=== PATIENT | female | born 1960 | race Caucasian/White ===

== ENCOUNTER 2022-02-15 17:41 | Inpatient (IN) | payer OTHER, MEDICARE ==
[~2022-02-15] VITALS: Ht 165.1 cm; Wt 74.8 kg
--- NOTE | 2022-02-15 18:22 | NUR ---
PT IS IN ROOM #2A. DR RAMIREZ EVALUATED THE PT.
[2022-02-15 18:36] LABS: MEAN CORPUSCULAR HEMOGLOBIN 27.2 uug (24.7-32.8); MEAN CORPUSCULAR VOLUME 84.7 fL (75.5-95.3); PLATELET COUNT (AUTO) 376 K/uL (179-408)
[2022-02-15 18:39] LABS: HEMATOCRIT 15.5 % (31.2-41.9)
[2022-02-15 18:41] LABS: BILIRUBIN,TOTAL 0.6 mg/dL (0.2-1.0); CREATININE 4.1 mg/dL (0.6-1.3); POTASSIUM 4.4 mmol/L (3.5-5.1); TOTAL PROTEIN, SERUM 7.1 g/dL (6.4-8.2)
[2022-02-15] MEDS ORDERED: MORPHINE SULFATE 2 MG/1 ML DISP.SYRIN IV ONE ×2 (20:00→21:45)
[2022-02-15] MEDS ORDERED: MORPHINE SULFATE 2 MG/1 ML DISP.SYRIN ONE (20:25)
[2022-02-15] MEDS ORDERED: AMOXICILLIN-CLAVUL 875-125MG TABLET PO ONE (21:45)
[2022-02-15] MEDS ORDERED: VANCOMYCIN 1G/D5W 200 ML PIGGYBACK IV ONE (21:45)
[2022-02-15] MEDS ORDERED: AZITHROMYCIN IV 500 MG in IV DEXTROSE 5% 250 ML IV ONE (21:45)
[2022-02-15] MEDS ORDERED: PIPERACILLIN SODIUM/TAZOBACTAM 3.375 G in IV DEXTROSE 5% 50 ML IV ONE (21:45)
--- NOTE | 2022-02-15 21:51 | NUR ---
PATIENT CURRENTLY RECIEVING BLOOD TRANSFUSION.
--- NOTE | 2022-02-15 21:58 | NUR ---
Dr Elise spoke with Dr Tinoco, [facility] senior receptionist who accepts patient.
[2022-02-15] MEDS ORDERED: EPOETIN ALFA 10,000 UNITS/ML VIAL SQ ONE (22:15)
--- NOTE | 2022-02-15 22:15 | NUR ---
PATIENT IS RECIEVING BLOOD AND SHOWING NO SIGNS OF REACTION AT THE MOMENT.
[2022-02-15] MEDS ORDERED: ALBUTEROL SULFATE 2.5 MG/ 0.5 ML NEBU NEB PRN (23:15)
[2022-02-15] MEDS ORDERED: ONDANSETRON 4 MG/2 ML VIAL IV PRN (23:15)
[2022-02-15] MEDS ORDERED: CEFTRIAXONE 1 G in IV DEXTROSE 5% 50 ML IV SCH (23:15)
[2022-02-15] MEDS ORDERED: ACETAMINOPHEN 325 MG TABLET PO PRN (23:15)
[2022-02-15 23:24] LABS: BAND % (MANUAL) 2 % (0-10); LYMPHOCYTES % (MANUAL) 25 % (20-40); MONOCYTES % (MANUAL) 4 % (2-10)
[2022-02-15 23:25] LABS: EOSINOPHILS % (MANUAL) 1 % (0-8); NEUTROPHILS % (MANUAL) 68 % (42-75)
[2022-02-16] VITALS (8 sets, daily range): BP systolic 118–195; BP diastolic 37–113
[2022-02-16] MEDS ORDERED: INSU100V7 SQ (00:02)
[2022-02-16] MEDS ORDERED: OXYC-128 PO (00:02)
[2022-02-16] MEDS ORDERED: AMLO10TA59 PO (00:02)
[2022-02-16] MEDS ORDERED: INSU100V11 SUBCUT (00:02)
[2022-02-16] MEDS ORDERED: MUPI22OI2 (00:02)
[2022-02-16] MEDS ORDERED: CLOP75TA15 PO (00:02)
[2022-02-16] MEDS ORDERED: DOCU100C36 PO (00:02)
[2022-02-16] MEDS ORDERED: SULF500T8 PO (00:02)
[2022-02-16] MEDS ORDERED: ONDA4SOL PO (00:02)
[2022-02-16] MEDS ORDERED: HYDR-894 PO (00:02)
[2022-02-16] MEDS ORDERED: PRED-170 PO (00:02)
[2022-02-16] MEDS ORDERED: HEPA500034 SUBCUT (00:02)
[2022-02-16] MEDS ORDERED: ASCO500T10 PO (00:02)
[2022-02-16] MEDS ORDERED: GABA-532 PO (00:02)
[2022-02-16] MEDS ORDERED: CALC-1310 PO (00:02)
[2022-02-16] MEDS ORDERED: FERR325T28 PO (00:02)
[2022-02-16] MEDS ORDERED: SEVE800T8 PO (00:02)
[2022-02-16] MEDS ORDERED: ERGO500040 PO (00:02)
[2022-02-16] MEDS ORDERED: HYDR200T4 PO (00:02)
[2022-02-16] MEDS ORDERED: MONT10TA33 PO (00:02)
[2022-02-16] MEDS ORDERED: FOLI1TAB94 PO (00:02)
[2022-02-16] MEDS ORDERED: ASPI81TA31 PO (00:02)
[2022-02-16] MEDS ORDERED: ACET-73 PO (00:02)
[2022-02-16] MEDS ORDERED: CARV12.52 PO (00:02)
[2022-02-16 00:26] LABS: IRON, SERUM 25 ug/dL (50-175)
--- NOTE | 2022-02-16 00:32 | NUR ---
PT. will be transferred to RM [id number].
--- NOTE | 2022-02-16 00:45 | NUR ---
Admitted patient in tele floor under the care of Dr Burnham, alert oriented. no sob no chest pain, on ongoing blood transfusion, patient also on ongoing dialysis. Patient alert oriented, no complain of pain, with 3 lumen perma cath at left chest. Patient noted with moist cough, kept hob elevated, monitor closely, cont to monitor.
--- NOTE | 2022-02-16 01:06 | NUR ---
Patient was trasnfered via gurney with blood transfusing. RN made aware of patient's arrival.
[2022-02-16] MEDS ORDERED: CEFTRIAXONE /D5W 50ML IVPB **ER PYXIS IV ONE (01:48)
[2022-02-16] MEDS ORDERED: PIPERACILLIN/TAZOBACTAM/D5W 50 ML IV ONE (01:48)
[2022-02-16] MEDS ORDERED: AZITHROMYCIN 500MG/ D5W 250ML IVPB **ER PYXIS ONLY IV ONE (01:48)
[2022-02-16] MEDS ORDERED: VANCOMYCIN IV 200 ML ONE (01:48)
--- NOTE | 2022-02-16 02:33 | NUR ---
Patient on ongoing dialysis, 1 unit PRBC is being transfused by electronic sales and service technician/RN tolerate well no adverse reaction noted, no sob no chest pain, cont to monitor.
--- NOTE | 2022-02-16 02:44 | NUR ---
Patient alert oriented, hob elevated with moist cough noted, but no sputum, on ongoing dialysis no adverse reaction noted from ongoing blood transfusion, cont to monitor.
--- NOTE | 2022-02-16 03:22 | NUR ---
Blood transfusion done with no adverse reaction noted, tolerating dialysis at this time, patient awake, alert oriented, BP was being monitored, cont to monitor.
--- NOTE | 2022-02-16 03:23 | NUR ---
IV antibiotic not given yet at this time, due to ongoing dialysis, cont to monitor.
--- NOTE | 2022-02-16 04:18 | NUR ---
SP dialysis took out 3,000 ml, tolerate well.
[2022-02-16] MEDS: MORPHINE SULFATE 2 MG/1 ML DISP.SYRIN IV PRN ×2 (04:52→11:45)
[2022-02-16] MEDS: GUAIFENESIN/DEXTROMETHORPHAN 5 ML UDC PO PRN ×2 (05:05→15:35)
[2022-02-16] MEDS ORDERED: diphenhydrAMINE 25 MG CAP PO PRN (06:00)
--- NOTE | 2022-02-16 06:00 | NUR ---
Notify Neil Prather patient has itching episode with order of benadryl 25 po q 6 prn for itching, and discontinue Rocepine, and Azithromycin IV.
--- NOTE | 2022-02-16 06:59 | NUR ---
Patient asleep no sob no chest pain, with moist cough noted, given cough meds as ordered with help, no further complain of pain at this time. Patient sinus on tele, cont to monitor.
[2022-02-16] MEDS ORDERED: PANTOPRAZOLE SODIUM 40 MG TABLET.DR PO SCH (07:00)
[2022-02-16 07:43] LABS: HEMATOCRIT 28.9 % (31.2-41.9); MEAN CORPUSCULAR HEMOGLOBIN 28.6 uug (24.7-32.8); MEAN CORPUSCULAR VOLUME 86.8 fL (75.5-95.3); PLATELET COUNT (AUTO) 407 K/uL (179-408)
[2022-02-16] MEDS ORDERED: EPOETIN ALFA-EPBX 10,000 UNIT/ML VIAL IV ONE (08:00)
[2022-02-16 08:20] LABS: BILIRUBIN,TOTAL 0.8 mg/dL (0.2-1.0); CREATININE 2.5 mg/dL (0.6-1.3); PHOSPHOROUS 3.5 mg/dL (2.5-4.9); TOTAL PROTEIN, SERUM 8.1 g/dL (6.4-8.2)
[2022-02-16] MEDS ORDERED: REMEDY ESSENTIAL ZINC PASTE 113 GM TOP SCH (09:00)
[2022-02-16] MEDS ORDERED: AMLODIPINE 10 MG TABLET PO SCH (09:30)
[2022-02-16] MEDS ORDERED: ACETAMINOPHEN ES 500 MG TABLET- SA PATIENTS-PAIN ONLY PO PRN (09:30)
[2022-02-16] MEDS ORDERED: CARVEDILOL 12.5 MG TABLET PO SCH (09:30)
[2022-02-16] MEDS ORDERED: hydrALAZINE HCL 25 MG TABLET PO PRN (09:30)
[2022-02-16] MEDS ORDERED: predniSONE 5 MG TABLET PO SCH (09:30)
[2022-02-16] MEDS ORDERED: PANTOPRAZOLE SODIUM 40 MG VIAL IV SCH (09:30)
[2022-02-16] MEDS ORDERED: ASPIRIN 81 MG TAB.CHEW PO SCH (10:00)
[2022-02-16] MEDS ORDERED: HYDROXYCHLOROQUINE SULFATE 200 MG TABLET PO SCH (10:00)
[2022-02-16] MEDS ORDERED: ALBUTEROL SULFATE 2.5 MG/3 ML NEBU NEB PRN (11:00)
[2022-02-16] MEDS ORDERED: SEVELAMER CARBONATE 800 MG TABLET PO SCH (11:30)
[2022-02-16] MEDS ORDERED: Medication Not On Formulary EA (Sevelamer Carbonate (Renvela) 1,600 MG) PO SCH (12:00)
[2022-02-16] MEDS ORDERED: INSULIN ASPART 1000 UNITS/10 ML VIAL(NOVOLOG) SQ SCH (12:00)
[2022-02-16] MEDS ORDERED: INSULIN LISPRO 300 UNIT/3 ML VIAL SQ SCH (13:00)
[2022-02-16] MEDS ORDERED: GABAPENTIN 100 MG CAPSULE PO SCH (13:00)
[2022-02-16 14:02] LABS: THYROID STIMULATING HORMONE 2.14 mIU/mL (0.358-3.740)
--- NOTE | 2022-02-16 15:37 | NUR ---
1300..BLOOD SUGAR 77..INSULIN 5 UNITS NOT GIVEN PT REFUSED TO EAT LUNCH..
--- NOTE | 2022-02-16 15:56 | NUR ---
1530..PT LEFT TO [facility] VIA EMS IN STABLE CONDITION..PT SON WAS AT BEDSIDE..
--- NOTE | 2022-02-16 15:57 | NUR ---
1445..REPORT CALLED TO SAMANTHA CASTILLO AT [facility]
[2022-02-16] MEDS ORDERED: DOCUSATE SODIUM 100 MG CAPSULE PO SCH ×2 (17:00→21:00)
[2022-02-16] MEDS ORDERED: ATORVASTATIN 40 MG TABLET PO SCH (21:00)
[2022-02-16] MEDS ORDERED: AZITHROMYCIN IV 500 MG in IV DEXTROSE 5% 250 ML IV SCH (21:00)
[2022-02-17] MEDS ORDERED: CALCIUM CARBONATE 600 MG TABLET PO SCH (09:00)
[2022-02-17] MEDS ORDERED: FOLIC ACID 1 MG TABLET PO SCH (09:00)
[2022-02-17] MEDS ORDERED: MONTELUKAST SODIUM 10 MG TABLET PO SCH (09:00)
[2022-02-17] MEDS ORDERED: ASCORBIC ACID 500 MG TABLET PO SCH (09:00)
[2022-02-17] MEDS ORDERED: FERROUS SULFATE 325 MG TABEC PO SCH (09:00)
[2022-02-17 10:45] LABS: HEPATITIS B SURFACE AG Negative (Negative)
== END 2022-02-16 15:35 | disposition short-term general hospital (02) | DRG 194 ==
LOC: ER 17:46 → TELE3 23:00
PROVIDERS: ADMIT Internal Medicine; ATTEND Nurse Practitioner Acute Care
PROC: 30233N1 Transfusion of Nonautologous Red Blood Cells into Peripheral Vein, Percutaneous Approach (ICD-10-PCS; principal; 2022-02-15)
PROC: B546ZZA Ultrasonography of Right Subclavian Vein, Guidance (ICD-10-PCS; 2022-02-16)
PROC: 5A1D70Z Performance of Urinary Filtration, Intermittent, Less than 6 Hours Per Day (ICD-10-PCS; 2022-02-16)
PROC: 05H533Z Insertion of Infusion Device into Right Subclavian Vein, Percutaneous Approach (ICD-10-PCS; 2022-02-16)
DX: I13.2 Hypertensive heart and chronic kidney disease with heart failure and with stage 5 chronic kidney disease, or end stage renal disease (principal); I21.A1 Myocardial infarction type 2; N18.6 End stage renal disease; J18.9 Pneumonia, unspecified organism; E11.22 Type 2 diabetes mellitus with diabetic chronic kidney disease; D64.9 Anemia, unspecified; E66.9 Obesity, unspecified; I50.33 Acute on chronic diastolic (congestive) heart failure; E78.5 Hyperlipidemia, unspecified; I25.10 Atherosclerotic heart disease of native coronary artery without angina pectoris; M06.9 Rheumatoid arthritis, unspecified; R13.10 Dysphagia, unspecified; Z20.822 Contact with and (suspected) exposure to COVID-19; Z87.01 Personal history of pneumonia (recurrent); Z98.61 Coronary angioplasty status; K21.9 Gastro-esophageal reflux disease without esophagitis; Z99.2 Dependence on renal dialysis; Z68.27 Body mass index [BMI] 27.0-27.9, adult; Z79.4 Long term (current) use of insulin; I44.0 Atrioventricular block, first degree
CPT/HCPCS: 36415; 70030-TC; 71045; 83550; 83735; 84100; 84443; 84484; 85025; 85610; 86706; 86850; 86900; 86901; 86920; 87340; 90937; 93005; A4663; C9113; G0378; J0456; J0696; J0885; J2270; J2543; J3370; J7040; J7050; J7512; P9016; Q0163